=== PATIENT | female | born 1990 | race Two or more races ===

== ENCOUNTER 2018-11-18 17:42 | Emergency (ER) | payer BC ==
--- NOTE | 2018-11-18 18:16 | ER Document Report ---
ED Medical Screen (RME) - General Chief Complaint: OB Problem (<20wks) Stated Complaint: VAGINAL BLEEDING Time Seen by Provider: 11/18/18 18:11 TRAVEL OUTSIDE OF THE [place] IN LAST 30 DAYS: No - HPI Notes: 11/18/18 18:15 Patient is a 28-year-old female G1, P0 approximate 5 to 6 weeks by gestation with no significant past medical history who presents complaining of vaginal bleeding that began today. Patient states that she is currently still bleeding. She is eating and drinking without difficulties. She is urinating normally and having normal bowel movements otherwise. Denies GILES, fever, neck pain, URI, CP, SOB, n/v/d, dysuria, back pain, or rash. I have treated and performed a rapid initial assessment of this patient. A comprehensive ED assessment and evaluation of the patient, analysis of test results and completion of medical decision making process will be conducted by additional ED providers. PHYSICAL EXAMINATION: GENERAL: Well-appearing, well-nourished and in no acute distress. A&Ox4. Answers questions appropriately. LUNGS: Breath sounds clear to auscultation bilaterally and equal. No wheezes rales or rhonchi. HEART: Regular rate and rhythm without murmurs, rubs, gallops. - Related Data Allergies/Adverse Reactions: NSAIDS (Non-Steroidal Anti-Inflamma Allergy (Verified 11/18/18 17:43) Physical Exam - Vital signs Vitals: Temp Pulse Resp BP Pulse Ox 99.0 F 116 H 14 147/85 H 98 11/18/18 17:45 11/18/18 17:45 11/18/18 17:45 11/18/18 17:45 11/18/18 17:45 Course - Vital Signs Vital signs: Temp Pulse Resp BP Pulse Ox 99.0 F 116 H 14 147/85 H 98 11/18/18 17:45 11/18/18 17:45 11/18/18 17:45 11/18/18 17:45 11/18/18 17:45
[2018-11-18 18:52] LABS: ABSOLUTE BASOPHILS # (AUTO) 0.1 10^3/uL (0.0-0.2); ABSOLUTE EOSINOPHILS # (AUTO) 0.1 10^3/uL (0.0-0.6); ABSOLUTE MONOCYTES (AUTO) 0.8 10^3/uL (0.1-1.4); ABSOLUTE NEUT (AUTO) 6.3 10^3/uL (1.7-8.2); BASOPHILS % (AUTO) 0.6 % (0-2); EOSINOPHILS % (AUTO) 1.2 % (0-6); HEMATOCRIT 45.5 % (36.0-47.0); HEMOGLOBIN 15.1 g/dL (12.0-15.5); LYMPHOCYTES % (AUTO) 21.8 % (13-45); MEAN CORPUSCULAR HEMOGLOBIN 25.2 pg (27.0-33.4); MEAN CORPUSCULAR HGB CONC 33.2 g/dL (32.0-36.0); MEAN CORPUSCULAR VOLUME 76 fl (80-97); MONOCYTES % (AUTO) 8.5 % (3-13); PLATELET COUNT 242 10^3/uL (150-450); RED CELL DISTRIBUTION WIDTH 14.3 % (11.5-14.0); SEGMENTED NEUTROPHILS % (AUTO) 67.9 % (42-78); TOTAL CELLS COUNTED % (AUTO) 100 %; WHITE BLOOD COUNT 9.2 10^3/uL (4.0-10.5)
[2018-11-18 18:55] LABS: APPEARANCE,URINE CLEAR; BILIRUBIN,URINE NEGATIVE (NEGATIVE); COLOR,URINE YELLOW; GLUCOSE, URINE NEGATIVE (NEGATIVE); KETONES,URINE NEGATIVE (NEGATIVE); LEUKOCYTE ESTERASE,URINE NEGATIVE (NEGATIVE); NITRITE,URINE NEGATIVE (NEGATIVE); PROTEIN,URINE NEGATIVE (NEGATIVE); UROBILINOGEN,URINE NEGATIVE mg/dL (<2.0)
--- NOTE | 2018-11-18 19:24 | RADIOLOGY REPORT (SQ) ---
EXAM DESCRIPTION: U/S OB TRANSVAG W/DOPPLER COMPLETED DATE/TIME: 11/18/2018 7:13 pm REASON FOR STUDY: preg, bleeding approx 5-6wks gestation COMPARISON: None. TECHNIQUE: Transvaginal static and realtime grayscale images acquired of the pelvis. Additional collin cted spectral and color Doppler images recorded. All images stored on PACs. bHCG: Pending. CLINICAL DATES: 7 weeks, 3 days LIMITATIONS: None. FINDINGS: FETUS: Single Living intrauterine . ULTRASOUND EGA: 6 weeks, 4 days ULTRASOUND CHACORTA: 07/10/2019 EFW: Not applicable less than 20 weeks. CRL: 0.7 cm FHR: 117 beats per minute. UTERUS: No masses. No anomalies. CERVICAL LENGTH: 2.6 cm Closed. RIGHT ADNEXA: Normal ovary with normal vascular flow. No adnexal free fluid. No adnexal masses. LEFT ADNEXA: Left ovary not visualized. No adnexal free fluid. No adnexal masses. FREE FLUID: None. OTHER: No other significant finding. IMPRESSION: Single intrauterine gestation at sonographic gestational age of 6 weeks, 4 days. heart rate 117 beats per minute. Trimester of : First - 0 to 13 weeks. TECHNICAL DOCUMENTATION: JOB ID: [id number] [employer]- All Rights Reserved rev Reading location - IP/workstation name: [email or web address]
--- NOTE | 2018-11-18 19:55 | ER Document Report ---
ED General - General Chief Complaint: OB Problem (<20wks) Stated Complaint: VAGINAL BLEEDING Time Seen by Provider: 11/18/18 18:11 Notes: Patient is a 28-year-old female G1, P0 at approximately 7 weeks by LMP who presents with vaginal bleeding that started several hours prior to arrival. Patient states that she has had approximate 2 pads with a bleeding since the blood started but has since stopped. Notes some mild, intermittent, cramping lower abdominal discomfort that is now resolved. No obvious exacerbating or alleviating factor. Regards symptoms as being mild to moderate in nature. Denies any history of similar symptoms during this . Has not seen her COUNTER MAKER regarding today's concerns. Denies fever or constitutional symptoms. No active bleeding currently. TRAVEL OUTSIDE OF THE [place] IN LAST 30 DAYS: No - Related Data Allergies/Adverse Reactions: NSAIDS (Non-Steroidal Anti-Inflamma Allergy (Verified 11/18/18 17:43) Past Medical History - General Information source: Patient - Social History Smoking Status: Never Smoker Frequency of alcohol use: None Drug Abuse: None Lives with: Spouse/Significant other Family History: Reviewed & Not Pertinent Patient has suicidal ideation: No Patient has homicidal ideation: No Renal/ Medical History: Denies: Hx Peritoneal Dialysis Review of Systems - Review of Systems Notes: Constitutional: Negative for fever. HENT: Negative for sore throat. Eyes: Negative for visual changes. Cardiovascular: Negative for chest pain. Respiratory: Negative for shortness of breath. Gastrointestinal: Positive for mild lower abdominal pain now resolved Genitourinary: Negative for dysuria. Positive for vaginal bleeding Musculoskeletal: Negative for back pain. Skin: Negative for rash. Neurological: Negative for headaches, weakness or numbness. 10 point ROS negative except as marked above and in HPI. Physical Exam - Vital signs Vitals: Temp Pulse Resp BP Pulse Ox 99.0 F 116 H 14 147/85 H 98 11/18/18 17:45 11/18/18 17:45 11/18/18 17:45 11/18/18 17:45 11/18/18 17:45 Interpretation: Tachycardic Notes: PHYSICAL EXAMINATION: GENERAL: Well-appearing, well-nourished and in no acute distress. HEAD: Atraumatic, normocephalic. EYES: Pupils equal round and reactive to light, extraocular movements intact, sclera anicteric, conjunctiva are normal. ENT: nares patent, oropharynx clear without exudates. Moist mucous membranes. NECK: Normal range of motion, supple without lymphadenopathy LUNGS: Breath sounds clear to auscultation bilaterally and equal. No wheezes rales or rhonchi. HEART: Regular rate and rhythm without murmurs ABDOMEN: Soft, nontender, normoactive bowel sounds. No guarding, no rebound. No masses appreciated. EXTREMITIES: Normal range of motion, no pitting or edema. No cyanosis. NEUROLOGICAL: No focal neurological deficits. Moves all extremities spontaneously and on command. PSYCH: Normal mood, normal affect. SKIN: Warm, Dry, normal turgor, no rashes or lesions noted. Course - Re-evaluation Re-evalutation: 11/18/18 19:55 Patient presents with a mild amount of vaginal bleeding in the setting of a first trimester . Ultrasound does demonstrate a viable intrauterine with active heart rate. No active bleeding at time of presentation. She is Rh positive. Patient's abdominal exam is otherwise benign without any focal tenderness. I do not suspect an acute appendicitis, pyelonephritis, cystitis, or bowel obstruction. At this time will discharge with return precautions and follow-up recommendations. Verbal discharge instructions given a the bedside and opportunity for questions given. Medication warnings reviewed. Patient is in agreement with this plan and has verbalized understanding of return precautions and the need for primary care follow-up in the next 24-72 hours. - Vital Signs Vital signs: Temp Pulse Resp BP Pulse Ox 98.6 F 80 16 106/68 99 11/18/18 20:00 11/18/18 20:00 11/18/18 20:00 11/18/18 20:00 11/18/18 20:00 - Laboratory Result Diagrams: 11/18/18 18:36 Laboratory results interpreted by me: 11/18/18 11/18/18 11/18/18 18:27 18:36 18:36 RBC 6.00 H MCV 76 L MCH 25.2 L RDW 14.3 H Beta HCG, Quant 50289.00 H Urine Blood LARGE H - Diagnostic Test Radiology reviewed: Reports reviewed Discharge - Discharge Clinical Impression: First trimester , Hemorrhage, , early Condition: Good Disposition: HOME, SELF-CARE Additional Instructions: Your ultrasound today shows a living intrauterine . Please follow closely with your primary care COUNTER MAKER. Please return if you develop severe abdominal pain, bleeding that goes through more than 2 pads for more than 2 hours, pass out, or have any other symptoms that are concerning to you. Please follow-up closely with your OBGYN regarding todays visit.
[2018-11-18 20:25] VITALS: BP 106/68
== END 2018-11-18 20:22 | disposition home or self-care (01) ==
LOC: ER 17:42
DX: O20.9 Hemorrhage in early pregnancy, unspecified (principal); Z3A.01 Less than 8 weeks gestation of pregnancy
CPT/HCPCS: 36415; 76817; 81001; 84702; 85025; 86900; 86901; 93976; 99284

== ENCOUNTER 2019-07-04 16:55 | Outpatient (CLI) | payer BC ==
--- NOTE | 2019-07-04 18:47 | Non Stress Test Report ---
Non Stress Test Datetime Report Generated by CPN: 07/04/2019 18:47 DEMOGRAPHIC Test Number: 1 EGA NST: 39.1 INDICATION Indication for Study (NST) Other: LABOR CHECK VITAL SIGNS Temperature - NST: 98.7 Pulse - NST: 96 RESP - NST: 16 NBPSYS NST: 130 NBPDIA NST: 73 MONITORING Monitor Explained: Monitor Explained; Test Explained; Patient Verbalized Understanding Time on Monitor: 07/04/2019 17:10 Time off Monitor: 07/04/2019 18:28 NST Duration: 78 NST INTERVENTIONS NST Interventions: PO Hydration; Reposition Patient Physician Notified NST: DR PINA BABY A: [id number] BABY A Movement : Present Contraction Frequency : 4-5 FHR Baseline : 145 Accelerations : 15X15 Decelerations : None Variability : Moderate 6-25bpm NST Review: Meets Criteria for Reactive NST NST Review and Verified By : ATTILA Diggs NST Results: Reactive NST REPORT Report Trigger: Send Report
[2019-07-04 21:48] LABS: APPEARANCE,URINE SLIGHTLY-CLOUDY; BILIRUBIN,URINE NEGATIVE (NEGATIVE); COLOR,URINE YELLOW; GLUCOSE, URINE NEGATIVE (NEGATIVE); KETONES,URINE NEGATIVE (NEGATIVE); LEUKOCYTE ESTERASE,URINE TRACE (NEGATIVE); NITRITE,URINE NEGATIVE (NEGATIVE); PROTEIN,URINE 30 mg/dL (NEGATIVE); UROBILINOGEN,URINE NEGATIVE mg/dL (<2.0)
[2019-07-04 22:04] LABS: URINE AMPHETAMINES SCREEN NEGATIVE; URINE BARBITURATES SCREEN NEGATIVE; URINE BENZODIAZEPINES SCREEN NEGATIVE; URINE COCAINE SCREEN NEGATIVE; URINE MARIJUANA (THC) SCREEN NEGATIVE; URINE METHADONE SCREEN NEGATIVE; URINE PHENCYCLIDINE SCREEN NEGATIVE
== END 2019-07-04 18:45 | disposition home or self-care (01) ==
LOC: LC 16:55
PROVIDERS: ATTEND Obstetrics & Gynecology
PROC: 4A1HXCZ Monitoring of Products of Conception, Cardiac Rate, External Approach (ICD-10-PCS; principal; 2019-07-04)
DX: O47.1 False labor at or after 37 completed weeks of gestation (principal); Z3A.39 39 weeks gestation of pregnancy
CPT/HCPCS: 59025; 80307; 81001

== ENCOUNTER 2019-07-06 03:39 | Outpatient (CLI) | payer BC ==
[2019-07-06 04:17] LABS: APPEARANCE,URINE CLEAR; BILIRUBIN,URINE NEGATIVE (NEGATIVE); COLOR,URINE YELLOW; GLUCOSE, URINE NEGATIVE (NEGATIVE); KETONES,URINE 80 mg/dL (NEGATIVE); LEUKOCYTE ESTERASE,URINE NEGATIVE (NEGATIVE); NITRITE,URINE NEGATIVE (NEGATIVE); PROTEIN,URINE NEGATIVE (NEGATIVE); URINE SPECIFIC GRAVITY 1.018; UROBILINOGEN,URINE NEGATIVE mg/dL (<2.0)
[2019-07-06 04:32] LABS: URINE AMPHETAMINES SCREEN NEGATIVE; URINE BARBITURATES SCREEN NEGATIVE; URINE BENZODIAZEPINES SCREEN NEGATIVE; URINE COCAINE SCREEN NEGATIVE; URINE MARIJUANA (THC) SCREEN NEGATIVE; URINE METHADONE SCREEN NEGATIVE; URINE PHENCYCLIDINE SCREEN NEGATIVE
[2019-07-06] MEDS ORDERED: HYDROXYZINE PAMOATE 50 MG CAPSULE ONE (04:34)
[2019-07-06] MEDS ORDERED: HYDROXYZINE PAMOATE 50 MG CAPSULE PO ONE (05:00)
== END 2019-07-06 04:45 | disposition home or self-care (01) ==
LOC: LC 03:39
PROVIDERS: ATTEND Obstetrics & Gynecology
PROC: 4A1HXCZ Monitoring of Products of Conception, Cardiac Rate, External Approach (ICD-10-PCS; principal; 2019-07-06)
DX: O47.1 False labor at or after 37 completed weeks of gestation (principal); Z3A.39 39 weeks gestation of pregnancy
CPT/HCPCS: 59025; 80307; 81005

== ENCOUNTER 2019-07-07 01:47 | Inpatient (IN) | payer BC ==
--- NOTE | 2019-07-07 01:53 | Non Stress Test Report ---
Non Stress Test Datetime Report Generated by CPN: 07/07/2019 01:52 DEMOGRAPHIC EGA NST: 39.3 INDICATION Indication for Study (NST) Other: Gestational age greater than 32 weeks. VITAL SIGNS Temperature - NST: 98.3 Pulse - NST: 85 RESP - NST: 17 NBPSYS NST: 118 NBPDIA NST: 59 MONITORING Monitor Explained: Monitor Explained; Test Explained; Patient Verbalized Understanding Time on Monitor: 07/06/2019 03:52 Time off Monitor: 07/06/2019 04:36 NST Duration: 44 NST INTERVENTIONS NST Interventions: PO Hydration; Reposition Patient Physician Notified NST: Dr. Younger BABY A: [id number] BABY A Movement : Present Contraction Frequency : 7-8 FHR Baseline : 135 Accelerations : 15X15 Decelerations : None Variability : Moderate 6-25bpm NST Review: Meets Criteria for Reactive NST NST Review and Verified By : ATTILA Starks NST Results: Reactive NST REPORT Report Trigger: Send Report
[2019-07-07] MEDS ORDERED: RINGERS SOLUTION,LACTATED 1,000 ML IV PRN (02:10)
[2019-07-07] MEDS ORDERED: OXYTOCIN 10 UNIT/ML VIAL ONE ×4 (02:15→18:11)
[2019-07-07] MEDS ORDERED: MISOPROSTOL 0.2 MG TABLET ONE ×5 (02:15→19:11)
[2019-07-07] MEDS ORDERED: OXYTOCIN/NORMAL SALINE 0 UNIT/0 ML RTUINJ ONE ×2 (02:15→16:38)
[2019-07-07] MEDS ORDERED: LIDOCAINE 1% INJ-PF (10 MG/ML) 30 ML SDV ONE (02:15)
[2019-07-07 02:40] LABS: ABSOLUTE MONOCYTES (AUTO) 1.4 10^3/uL (0.1-1.4); ABSOLUTE NEUT (AUTO) 12.4 10^3/uL (1.7-8.2); BASOPHILS % (AUTO) 0.1 % (0-2); EOSINOPHILS % (AUTO) 0.2 % (0-6); HEMATOCRIT 41.4 % (36.0-47.0); HEMOGLOBIN 13.9 g/dL (12.0-15.5); LYMPHOCYTES % (AUTO) 6.8 % (13-45); MEAN CORPUSCULAR HEMOGLOBIN 26.3 pg (27.0-33.4); MEAN CORPUSCULAR HGB CONC 33.6 g/dL (32.0-36.0); MEAN CORPUSCULAR VOLUME 78 fl (80-97); MONOCYTES % (AUTO) 9.3 % (3-13); PLATELET COUNT 143 10^3/uL (150-450); RED BLOOD COUNT 5.28 10^6/uL (3.72-5.28); RED CELL DISTRIBUTION WIDTH 14.5 % (11.5-14.0); SEGMENTED NEUTROPHILS % (AUTO) 83.6 % (42-78); TOTAL CELLS COUNTED % (AUTO) 100 %; WHITE BLOOD COUNT 14.8 10^3/uL (4.0-10.5)
[2019-07-07 02:41] LABS: APPEARANCE,URINE CLEAR; BILIRUBIN,URINE NEGATIVE (NEGATIVE); COLOR,URINE YELLOW; GLUCOSE, URINE NEGATIVE (NEGATIVE); KETONES,URINE NEGATIVE (NEGATIVE); LEUKOCYTE ESTERASE,URINE TRACE (NEGATIVE); NITRITE,URINE NEGATIVE (NEGATIVE); PROTEIN,URINE NEGATIVE (NEGATIVE); URINE SPECIFIC GRAVITY 1.009; UROBILINOGEN,URINE NEGATIVE mg/dL (<2.0)
[2019-07-07] MEDS ORDERED: FENTANYL CITRATE INJ/PF 100 MCG/2 ML AMPUL ONE ×3 (02:56→19:25)
[2019-07-07] MEDS ORDERED: EPHEDRINE SULFATE INJ 50 MG/1 ML AMPULE ONE ×2 (02:56→16:38)
[2019-07-07] MEDS ORDERED: PHENYLEPHRINE HCL INJ/PF 10 MG/1 ML SDV ONE (02:56)
[2019-07-07 02:57] LABS: URINE AMPHETAMINES SCREEN NEGATIVE; URINE BARBITURATES SCREEN NEGATIVE; URINE BENZODIAZEPINES SCREEN NEGATIVE; URINE COCAINE SCREEN NEGATIVE; URINE MARIJUANA (THC) SCREEN NEGATIVE; URINE METHADONE SCREEN NEGATIVE; URINE PHENCYCLIDINE SCREEN NEGATIVE
[2019-07-07] MEDS ORDERED: FENTANYL/BUPIVACAINE/NS/PF 0 MCG/0 ML RTUINJ EPI ONE (02:57)
[2019-07-07] MEDS ORDERED: BUPIVACAINE HCL 0.25 % INJ/PF (2.5 MG/1 ML) 30 ML VIAL ONE (02:57)
--- NOTE | 2019-07-07 07:25 | Admission Physical ---
Datetime Report Generated by CPN: 07/07/2019 07:25 CURRENT ADMISSION Chief Complaint: Uterine Contractions Indication for Induction: Not Applicable Admit Impression : Term, Intrauterine Admit Plan: Admit to Unit; Initiate Labor Induction Protocol ALLERGIES Medication Allergies: Yes Medication Allergies: NSAIDS (Non-Steroidal Anti-Inflamma (07/06/2019) Latex: No Latex Allergies Food Allergies: None Environmental Allergies: None OBSTETRICAL HISTORY EDC: 07/10/2019 00:00 : 1 Para: 0 Livin Cesareans: 0 Gestational Diabetes: No Rh Sensitization: No Incompetent Cervix: No KATE: No Infertility: No ART Treatment: No Uterine Anomaly: No IUGR: No Hx Previous C/S: No Macrosomia: No Hx Loss/Stillborn: No PIH: No Hx : No Placenta Previa/Abruption: No Depression/PP Depression: No PTL/PROM: No Post Hemorrhage: No Current Procedures: Ultrasound; NST Obstetrical History Comments: G1-Current SEE RECORDS Alcohol: No Marijuana : No Cocaine: No Other Illicit Drugs: No Cigarettes: Never Smoker. [id number] MEDICAL HISTORY Diabetes: No Blood Transfusion: No Pulmonary Disease (Asthma, TB): No Breast Disease: No Hypertension: No Foxing Closer Surgery: No Heart Disease: No Hosp/Surgery: No Autoimmune Disorder: No Anesthetic Complications: No Kidney Disease: No Abnormal Pap Smear: No Neuro/Epilepsy: No Psychiatric Disorders: No Other Medical Diseases: No Hepatitis/Liver Disease: No Significant Family History: No Varicosities/Phlebitis: No Trauma/Violence : No Thyroid Dysfunction: No INFECTIOUS HISTORY Gonorrhea: No Genital Herpes: No Chlamydia: No Tuberculosis: No Syphilis: No Hepatitis: No HIV/AIDS Exposure: No Rash or Viral Illness: No HPV: No PHYSICAL EXAM General: Normal HEENT: Normal Neurologic: Normal Thyroid: Deferred Heart: Normal Lungs: Normal Breast: Deferred Back: Normal Abdomen: Normal Genitourinary Exam: Normal Extremities: Normal DTRs: Normal Pelvic Type: Adequate Vital Signs: Reviewed VAGINAL EXAM Dilatation: 3 Effacement: 80 Station: 0 Contraction Comments: q 2-3 MEMBRANES Membranes: Intact FETUS A EGA: 39.4 Monitoring: External US FHR- Baseline: 125 Variability: Moderate 6-25bpm Accelerations: 15X15 Decelerations: None FHR Category: Category I Presentation: Vertex Admit Comment: 29yo at 39+4ega presents with regular contractions. +AFP for Spina Bifida - but was it was repeated per records and normal. maternal 21 normal. GBS positive. Admit to labor and delivery. Anticipate . PLANS FOR LABOR AND DELIVERY Labor and Delivery: None Pain Management: Natural; Epidural Feeding Preference: Breast Benefit of Breast Feed Discussed: Yes Circumcision: Yes INFORMED CONSENT Signature: with User ID: Jose A
[2019-07-07] MEDS ORDERED: CEFAZOLIN 1 GM/D5W RTU 1 GM/50 ML RTUPB IV ONE (15:05)
[2019-07-07] MEDS ORDERED: CITRIC ACID/SODIUM CITRATE ORAL SOLN 15 ML UDCUP ONE (15:05)
[2019-07-07] MEDS ORDERED: FENTANYL/BUPIVACAINE/NS/PF 300 MCG/150 ML RTUINJ EPI ONE (15:22)
[2019-07-07] MEDS ORDERED: LIDOCAINE 1.5%/EPINEPHRINE INJ 5 ML AMP ONE (15:53)
[2019-07-07] MEDS ORDERED: SODIUM BICARBONATE 8.4% INJ 50 MEQ/50 ML DISP.SYRIN ONE (15:55)
[2019-07-07] MEDS ORDERED: KETOROLAC TROMETHAMINE INJ/PF 30 MG/1 ML SDV ONE (16:37)
[2019-07-07] MEDS ORDERED: ONDANSETRON HCL INJ/PF 4 MG/2 ML SDV ONE (16:38)
[2019-07-07] MEDS ORDERED: MIDAZOLAM 2 MG/2 ML INJ ONE (16:38)
[2019-07-07] MEDS ORDERED: ACETAMINOPHEN 1,000 MG/100 ML RTUPB IV ONE (16:38)
[2019-07-07] MEDS ORDERED: LIDOCAINE 2% INJ-PF (20 MG/ML) 10 ML AMPUL ONE (17:17)
[2019-07-07] MEDS ORDERED: METHYLERGONOVINE MALEATE INJ/PF 0.2 MG/1 ML AMPULE ONE (17:30)
[2019-07-07] MEDS ORDERED: PROPOFOL INJ 200 MG/20 ML VIAL IV ONE (17:30)
[2019-07-07] MEDS ORDERED: CARBOPROST TROMETHAMINE INJ 250 MCG/1 ML AMPULE ONE (17:30)
[2019-07-07] MEDS ORDERED: OXYTOCIN/NORMAL SALINE 20 UNIT/1,000 ML RTUINJ ONE (17:30)
[2019-07-07] MEDS ORDERED: OXYTOCIN/NORMAL SALINE 20 UNIT/1,000 ML RTUINJ IV PRN (18:00)
[2019-07-07] MEDS ORDERED: DIPH/PERTUSS(ACELL)/TETANUS VAC/PF 0.5 ML SYR (>=10YO) IM PRN (18:00)
[2019-07-07] MEDS ORDERED: MEASLES,MUMPS&RUBELLA VACC/PF 0.5 ML VIAL SUBCUT PRN (18:00)
[2019-07-07] MEDS ORDERED: OXYCODONE-ACETAMINOPHEN 5-325 MG TABLET PO PRN (18:00)
[2019-07-07] MEDS ORDERED: PROMETHAZINE HCL INJ 25 MG/1 ML VIAL IV PRN (18:00)
[2019-07-07] MEDS ORDERED: ACETAMINOPHEN 325 MG TABLET PO PRN (18:00)
[2019-07-07] MEDS ORDERED: SIMETHICONE 80 MG TAB.CHEW PO PRN (18:00)
[2019-07-07] MEDS ORDERED: ACETAMINOPHEN 1,000 MG/100 ML RTUPB IV PRN (18:00)
[2019-07-07] MEDS ORDERED: AMPICILLIN SOD/SULBACTAM 3 GM VIAL IV SCH (18:15)
[2019-07-07] MEDS ORDERED: AMPICILLIN SOD/SULBACTAM 3 GM VIAL ONE (18:52)
[2019-07-07] MEDS ORDERED: DIPHENHYDRAMINE HCL 50 MG/ML VIAL ONE (19:32)
[2019-07-07] MEDS ORDERED: MISOPROSTOL 0.2 MG TABLET PR ONE (20:00)
[2019-07-07] MEDS ORDERED: DIPHENHYDRAMINE HCL 50 MG/ML VIAL IV ONE (20:30)
[2019-07-07 21:43] LABS: ABSOLUTE LYMPHOCYTES (AUTO) 1.2 10^3/uL (0.5-4.7); ABSOLUTE MONOCYTES (AUTO) 1.8 10^3/uL (0.1-1.4); ABSOLUTE NEUT (AUTO) 12.4 10^3/uL (1.7-8.2); BASOPHILS % (AUTO) 0.2 % (0-2); LYMPHOCYTES % (AUTO) 7.9 % (13-45); MEAN CORPUSCULAR HEMOGLOBIN 26.3 pg (27.0-33.4); MEAN CORPUSCULAR HGB CONC 33.1 g/dL (32.0-36.0); MEAN CORPUSCULAR VOLUME 79 fl (80-97); MONOCYTES % (AUTO) 11.4 % (3-13); PLATELET COUNT 123 10^3/uL (150-450); RED BLOOD COUNT 4.41 10^6/uL (3.72-5.28); RED CELL DISTRIBUTION WIDTH 14.5 % (11.5-14.0); SEGMENTED NEUTROPHILS % (AUTO) 80.5 % (42-78); TOTAL CELLS COUNTED % (AUTO) 100 %; WHITE BLOOD COUNT 15.4 10^3/uL (4.0-10.5)
[2019-07-07 21:44] LABS: HEMOGLOBIN 11.6 g/dL (12.0-15.5)
[2019-07-07] MEDS: OXYCODONE-ACETAMINOPHEN 5-325 MG TABLET PO PRN (21:47)
[2019-07-07] MEDS: MORPHINE SULFATE 10 MG/ML INJ IV PRN (23:14)
[2019-07-07] MEDS: DOCUSATE SODIUM 100 MG CAPSULE PO SCH (23:21)
[2019-07-07] MEDS ORDERED: AMPICILLIN SOD/SULBACTAM 3 GM VIAL IV PRN (23:59)
[2019-07-08] MEDS: AMPICILLIN SODIUM/SULBACTAM NA 3 GM in NORMAL SALINE 100 ML IV SCH ×2 (02:38→12:23)
[2019-07-08] MEDS: OXYCODONE-ACETAMINOPHEN 5-325 MG TABLET PO PRN ×3 (07:24→19:57)
[2019-07-08 07:43] LABS: HEMATOCRIT 32.9 % (36.0-47.0); HEMOGLOBIN 11.1 g/dL (12.0-15.5); MEAN CORPUSCULAR HEMOGLOBIN 26.5 pg (27.0-33.4); MEAN CORPUSCULAR HGB CONC 33.6 g/dL (32.0-36.0); MEAN CORPUSCULAR VOLUME 79 fl (80-97); PLATELET COUNT 113 10^3/uL (150-450); RED BLOOD COUNT 4.17 10^6/uL (3.72-5.28); RED CELL DISTRIBUTION WIDTH 14.2 % (11.5-14.0); WHITE BLOOD COUNT 13.9 10^3/uL (4.0-10.5)
[2019-07-08] MEDS: MORPHINE SULFATE 10 MG/ML INJ IV PRN ×2 (09:43→15:17)
[2019-07-08] MEDS: PRENATAL VITAMIN W DHA CAPSULE PO SCH (09:48)
[2019-07-08] MEDS: DOCUSATE SODIUM 100 MG CAPSULE PO SCH ×2 (09:48→17:40)
--- NOTE | 2019-07-08 10:55 | PDOC PROGRESS REPORT ---
Subjective-OB Progress Note for:: 07/08/19 Subjective: Pt is doing well, reports reg diet, pain is controlled. FC to BSD with clear urine. Has not been OOB yet, as she is less than 24* from surgery. She has no concerns. Physical Exam (OB) Vital Signs: Temp Pulse Resp BP Pulse Ox 99.0 F 97 18 108/61 97 07/08/19 07:40 07/08/19 07:40 07/08/19 07:40 07/08/19 07:40 07/08/19 07:40 Intake & Output 07/07/19 07/08/19 07/09/19 06:59 06:59 06:59 Intake Total 100 1050 Output Total 350 Balance -250 1050 Weight 64 kg - Dressing Removed: Yes Incision: Dressing, Well Approximated - Lochia Lochia Amount: Small 10-25 ml Lochia Color: Rubra/Red - Abdomen Description: Tender, Soft, Round Hernia Present: No Fundal Description: Firm, Midline Fundal Height: u/u - u/2 Objective-Diagnostic Laboratory: 07/08/19 06:56 07/07/19 07/08/19 21:25 06:56 WBC 15.4 H 13.9 H RBC 4.41 4.17 Hgb 11.6 L D 11.1 L Hct 35.0 L 32.9 L MCV 79 L 79 L MCH 26.3 L 26.5 L MCHC 33.1 33.6 RDW 14.5 H 14.2 H Plt Count 123 L 113 L Seg Neutrophils % 80.5 H Assessment and Plan(PN) - Assessment and Plan (1) Chorioamnionitis, delivered, current hospitalization Is this a current diagnosis for this admission?: Yes (2) Active labor at term Is this a current diagnosis for this admission?: Yes (3) delivery delivered Is this a current diagnosis for this admission?: Yes - Time Spent with Patient Time with patient: Less than 15 minutes Medications reviewed and adjusted accordingly: Yes - Disposition Anticipated Discharge: Home Within: within 48 hours
[2019-07-09] MEDS: OXYCODONE-ACETAMINOPHEN 5-325 MG TABLET PO PRN ×4 (00:19→17:20)
[2019-07-09 07:28] LABS: ABSOLUTE EOSINOPHILS # (AUTO) 0.1 10^3/uL (0.0-0.6); ABSOLUTE LYMPHOCYTES (AUTO) 1.5 10^3/uL (0.5-4.7); ABSOLUTE MONOCYTES (AUTO) 1.7 10^3/uL (0.1-1.4); ABSOLUTE NEUT (AUTO) 11.9 10^3/uL (1.7-8.2); BASOPHILS % (AUTO) 0.3 % (0-2); EOSINOPHILS % (AUTO) 0.9 % (0-6); HEMATOCRIT 30.9 % (36.0-47.0); HEMOGLOBIN 10.3 g/dL (12.0-15.5); LYMPHOCYTES % (AUTO) 9.8 % (13-45); MEAN CORPUSCULAR HEMOGLOBIN 26.2 pg (27.0-33.4); MEAN CORPUSCULAR HGB CONC 33.2 g/dL (32.0-36.0); MEAN CORPUSCULAR VOLUME 79 fl (80-97); MONOCYTES % (AUTO) 11.1 % (3-13); PLATELET COUNT 145 10^3/uL (150-450); RED BLOOD COUNT 3.91 10^6/uL (3.72-5.28); RED CELL DISTRIBUTION WIDTH 14.4 % (11.5-14.0); SEGMENTED NEUTROPHILS % (AUTO) 77.9 % (42-78); TOTAL CELLS COUNTED % (AUTO) 100 %; WHITE BLOOD COUNT 15.3 10^3/uL (4.0-10.5)
--- NOTE | 2019-07-09 10:21 | PDOC DISCHARGE SUMMARY ---
Impression - Admit/DC Date/PCP Admission Date/Primary Care Provider: 07/07/19 02:11 STEPHANIE Jiang ZAHIRA MORRIS, DO Discharge Date: 07/09/19 - Discharge Diagnosis (1) Active labor at term Is this a current diagnosis for this admission?: Yes (2) delivery delivered Is this a current diagnosis for this admission?: Yes (3) Chorioamnionitis, delivered, current hospitalization Is this a current diagnosis for this admission?: Yes - Additional Information Discharge Diet: Regular Discharge Activity: Balance Activity w/Rest, No Lifting Over 10 Pounds, No Lifting/Push/Pulling, Pelvic Rest, No tub bath Referrals: [facility] [Provider Group] Prescriptions: Oxycodone HCl/Acetaminophen [Percocet 5-325 mg Tablet] 1 tab PO Q4HP PRN #30 tablet PRN Reason: Home Medications: Vit No.130/Iron/Folic [ Tablet] 1 each PO DAILY 07/04/19 Oxycodone HCl/Acetaminophen [Percocet 5-325 mg Tablet] 1 tab PO Q4HP PRN #30 tablet 07/09/19 HPI Gestational Age: 39+4 Reason(s) for Admission: Onset of Labor Procedures: NST Intrapartum Procedure(s): : Low Cervical, Transverse Results Laboratory Results: WBC 15.3 10^3/uL (4.0-10.5) H 07/09/19 06:39 RBC 3.91 10^6/uL (3.72-5.28) 07/09/19 06:39 Hgb 10.3 g/dL (12.0-15.5) L 07/09/19 06:39 Hct 30.9 % (36.0-47.0) L 07/09/19 06:39 MCV 79 fl (80-97) L 07/09/19 06:39 MCH 26.2 pg (27.0-33.4) L 07/09/19 06:39 MCHC 33.2 g/dL (32.0-36.0) 07/09/19 06:39 RDW 14.4 % (11.5-14.0) H 07/09/19 06:39 Plt Count 145 10^3/uL (150-450) L 07/09/19 06:39 Lymph % (Auto) 9.8 % (13-45) L 07/09/19 06:39 Kaufman % (Auto) 11.1 % (3-13) 07/09/19 06:39 Eos % (Auto) 0.9 % (0-6) 07/09/19 06:39 Baso % (Auto) 0.3 % (0-2) 07/09/19 06:39 Absolute Neuts (auto) 11.9 10^3/uL (1.7-8.2) H 07/09/19 06:39 Absolute Lymphs (auto) 1.5 10^3/uL (0.5-4.7) 07/09/19 06:39 Absolute Monos (auto) 1.7 10^3/uL (0.1-1.4) H 07/09/19 06:39 Absolute Eos (auto) 0.1 10^3/uL (0.0-0.6) 07/09/19 06:39 Absolute Basos (auto) 0.0 10^3/uL (0.0-0.2) 07/09/19 06:39 Seg Neutrophils % 77.9 % (42-78) 07/09/19 06:39 Urine Color YELLOW 07/07/19 01:54 Urine Appearance CLEAR 07/07/19 01:54 Urine pH 6.0 (5.0-9.0) 07/07/19 01:54 Ur Specific Lowell 1.009 07/07/19 01:54 Urine Protein NEGATIVE mg/dL (NEGATIVE) 07/07/19 01:54 Urine Glucose (UA) NEGATIVE mg/dL (NEGATIVE) 07/07/19 01:54 Urine Ketones NEGATIVE mg/dL (NEGATIVE) 07/07/19 01:54 Urine Blood SMALL (NEGATIVE) H 07/07/19 01:54 Urine Nitrite NEGATIVE (NEGATIVE) 07/07/19 01:54 Urine Bilirubin NEGATIVE (NEGATIVE) 07/07/19 01:54 Urine Urobilinogen NEGATIVE mg/dL (<2.0) 07/07/19 01:54 Ur Leukocyte Esterase TRACE (NEGATIVE) H 07/07/19 01:54 Urine Ascorbic Acid NEGATIVE (NEGATIVE) 07/07/19 01:54 Urine Opiates Screen NEGATIVE 07/07/19 01:54 Urine Methadone Screen NEGATIVE 07/07/19 01:54 Ur Barbiturates Screen NEGATIVE 07/07/19 01:54 Ur Phencyclidine Scrn NEGATIVE 07/07/19 01:54 Ur Amphetamines Screen NEGATIVE 07/07/19 01:54 U Benzodiazepines Scrn NEGATIVE 07/07/19 01:54 Urine Cocaine Screen NEGATIVE 07/07/19 01:54 U Marijuana (THC) Screen NEGATIVE 07/07/19 01:54 Blood Type B POSITIVE 07/07/19 02:26 Antibody Screen NEGATIVE 07/07/19 02:26 Plan Plan of Treatment: follow up in one week at [facility]
[2019-07-09] MEDS: DOCUSATE SODIUM 100 MG CAPSULE PO SCH ×2 (10:51→17:20)
[2019-07-09] MEDS: PRENATAL VITAMIN W DHA CAPSULE PO SCH (10:51)
[2019-07-09 11:51] VITALS: BP 115/72
--- NOTE | 2019-07-11 15:05 | Delivery Summary ---
Del Sum A-C Datetime Report Generated by CPN: 07/11/2019 15:04 DELIVERY PERSONNEL DELIVERY PERSONNEL: [id number] Delivery Doctor:: Roberta Mejia MD Lollypop Machine Operator:: Ciera Thierry, RNC Steel Plate Printer/ASSOCIATE MATERIAL HANDLER: Dominik Fonseca, Steel Plate Printer/ASSOCIATE MATERIAL HANDLER: Vanessaeddie Gonzalez, ROLL OVER LOADER MATERNAL INFORMATION Delivery Anesthesia: Epidural Medications After Delivery: Pitocin Bolus-Please Comment; Methergine 0.2mg IM; Cytotec 1000mcg Per Rectum/Vagina Meds After Delivery Comment: TXA Pitocin 40 IV and 20 in uterus Delivery QBL: 1446 Maternal Complications: Hemorrhage LABOR SUMMARY EDC: 07/10/2019 00:00 No. Babies in Womb: 1 LABOR INFORMATION Onset of Labor: 07/07/2019 00:01 Complete Dilatation: 07/07/2019 11:00 Group B Beta Strep: negative MEMBRANES Membranes Rupture Method: Spontaneous Rupture of Membranes: 07/07/2019 07:22 Length of Rupture (hr): 10.03 Amniotic Fluid Color: Clear Amniotic Fluid Amount: Moderate Amniotic Fluid Odor: Normal STAGES OF LABOR Stage 1 hr: 10 Stage 1 min: 59 Stage 2 hr: 6 Stage 2 min: 24 Stage 3 hr: 0 Stage 3 min: 1 Total Time in Labor hr: 17 Total Time in Labor min: 24 VAGINAL DELIVERY Episiotomy: None CSECTION DELIVERY Primary Indication: Arrest of Descent Secondary Indication: CPD CSection Urgency: Non-Scheduled CSection Incidence: Primary Labor: Labor Elective: Nonelective CSection Incision: Lower Uterine Transverse BABY A INFORMATION Delivery Date/Time: 07/07/2019 17:24 Method of Delivery: Born in Route : No : N/A Forceps: N/A Vacuum Extraction: N/A Shoulder Dystocia : No PRESENTATION/POSITION BABY A Presentation: Cephalic Presentation: Cephalic Cephalic Presentation: Vertex PLACENTA INFORMATION BABY A Placenta Delivery Time : 07/07/2019 17:25 Placenta Method of Delivery: Spontaneous Placenta Status: Delivered SCORES BABY A Heart Rate 1 min: >100 bpm Resp Effort 1 min: Good Cry Reflex Irritability 1 min: Cough or Sneeze or Pulls Away Muscle Tone 1 min: Active Motion Color 1 min: Body Refugio, Extremities Blue SCORE 1 MIN: 9 Heart Rate 5 min: >100 bpm Resp Effort 5 min: Good Cry Reflex Irritability 5 min: Cough or Sneeze or Pulls Away Muscle Tone 5 min: Active Motion Color 5 min: Body Refugio, Extremities Blue SCORE 5 MIN: 9 INFORMATION BABY A Gestational Age at Delivery: 39.4 Gestational Status: Full Term- 39- 40.6 Weeks Outcome : Liveborn Infant Condition : Stable Infant Sex: Male IDENTIFICATION BABY A Verification Date/Time: 07/07/2019 17:28 ID Band Number: [id number] Mother's Name Verified: Yes Infant RN Verifying Infant: tommy Additional Verifying Personnel: Pmcphearson WEIGHT/LENGTH BABY A Birthweight (gm): 3080 Infant Weight (lb): 6 Weight (oz): 13 Infant Length (in): 20.50 Length (cm): 52.07 CORD INFORMATION BABY A No. Cord Vessels: 3 Nuchal Cord : N/A Cord Blood Taken: Yes-For Storage (Mom's Blood type +)
--- NOTE | 2019-07-25 07:02 | Operative Report ---
Operative Report DATE OF SURGERY: 07/07/19 PREOPERATIVE DIAGNOSIS: IUP @ 40 wk, failure to progress, failure to descend, O ccipitut Posterior presentation POSTOPERATIVE DIAGNOSIS: same OPERATION: Low transverse hysterotomy section SURGEON: WAI SAVAGE ANESTHESIA: Epidural COMPLICATIONS: None ESTIMATED BLOOD LOSS: 750 cc INTRAOPERATIVE FINDINGS: male cephalic OP presentation, weight 6 lbs 14 ounces, APGARS PROCEDURE: PROCEDURE IN DETAIL: The patient was taken to the operating room, prepared and draped in a normal sterile fashion in a supine position with a leftward tilt. A transverse skin incision was made with a scalpel and carried through to the underlying layer of fascia with the same scalpel. The fascia was excised in the midline and extended laterally with Clint. The fascia was then dissected from the rectus muscle sharply with Clint and the rectus muscle was divided and the peritoneal cavity was entered sharply with the same Metzenbaum. With good visualization of the bladder and the uterus the bladder blade was inserted. The hysterotomy was nicked with a scalpel and extended laterally with surgeon finger fraction. The infant was then delivered atraumatically. The nose and mouth were suctioned with a suction bulb, the cord was clamped and cut and handed off to awaiting pediatricians. Cord blood was collected. The placenta was removed manually. The uterus was exteriorized and cleared of clots and debris. The hysterotomy was closed with 0 Monocryl in a running, locked fashion. A second layer of the same suture was used to imbricate to ensure hemostasis. The uterus was returned to the abdomen and peritoneal cavity was cleared of clots and debris. The rectus muscle and peritoneum were repaired with mattress stitch of 2-0 Chromic. The fascia was closed with 0-Vicryl. The subcutaneous layer was closed with plain catgut and the skin was closed with 4-0 Vicryl. The patient tolerated the procedure well. Sponge, lap, and needle counts correct x2 and the patient was taken to recovery in stable condition.
== END 2019-07-09 20:35 | disposition home or self-care (01) | DRG 786 ==
LOC: LC 01:47 → LR 02:11 → 2S 20:09
PROVIDERS: ADMIT Student in an Organized Health Care Education/Training Program; ATTEND Student in an Organized Health Care Education/Training Program
PROC: 10D00Z1 Extraction of Products of Conception, Low, Open Approach (ICD-10-PCS; principal; 2019-07-07)
DX: O99.824 Streptococcus B carrier state complicating childbirth (principal); O41.1230 Chorioamnionitis, third trimester, not applicable or unspecified; O67.9 Intrapartum hemorrhage, unspecified; O62.1 Secondary uterine inertia; O33.9 Maternal care for disproportion, unspecified; Z3A.39 39 weeks gestation of pregnancy; Z37.0 Single live birth; Z88.8 Allergy status to other drugs, medicaments and biological substances
CPT/HCPCS: 1961; 36415; 80307; 81005; 85025; 85027; 86592; 86850; 86900; 86901; 94799; J0131; J0295; J0690; J1200; J1885; J2210; J2250; J2270; J2370; J2405; J2590; J2704; J3010; J3490; J7050